=== PATIENT | female | born 1980 | race Hispanic/Latino ===

== ENCOUNTER 2019-06-06 17:59 | Emergency (ER) | payer BC, OTHER ==
[2019-06-06 18:54] LABS: Protime INR 1.02
[2019-06-06 19:07] LABS: Barbiturates NEGATIVE (NEGATIVE); Benzodiazepines NEGATIVE (NEGATIVE); Cocaine NEGATIVE (NEGATIVE); METHAMPHETAM POSITIVE (NEGATIVE); Methadone NEGATIVE (NEGATIVE); Opiates NEGATIVE (NEGATIVE); Phencyclidine NEGATIVE (NEGATIVE); THC Cannibis NEGATIVE (NEGATIVE)
[2019-06-06] MEDS ORDERED: NA CHLORIDE 0.9% 1,000 ML ONE (19:23)
[2019-06-06 19:29] LABS: ALT/SGPT 34 U/L (12-78); AST/SGOT 40 U/L (15-37); Albumin 4.5 g/dL (3.4-5.0); Alkaline Phosphatase 113 U/L (45-117); BUN Blood Urea Nitrogen 9 mg/dL (7-18); Bicarbonate 22 mmol/L (21-32); Bilirubin Direct 0.2 mg/dL (0-0.2); Bilirubin Total 0.4 mg/dL (0.2-1.0); Glucose Level 106 mg/dL (74-106); Potassium 4.1 mmol/L (3.5-5.1); Protein, Total 8.4 g/dL (6.4-8.2); Sodium Level 137 mmol/L (136-145)
[2019-06-06 19:33] LABS: Absolute Lymphocytes (CBC) 1.7 K/uL (0.7-4.9); Basophils % 0.2 % (0-1.3); Hematocrit 37.8 % (36.0-45.0); Lymphocytes % 16.7 % (15.3-44.8); RBC Red Blood Cell Count 4.68 M/uL (3.86-4.86)
[2019-06-06] MEDS ORDERED: ACETAMINOPHEN 500 MG TAB ONE (19:48)
[2019-06-06 20:33] LABS: Urine Blood 2+ (NEG); Urine Glucose NEGATIVE (NEG); Urine Protein NEGATIVE (NEG)
--- NOTE | 2019-06-06 21:18 | EDPHYS ---
Physician Documentation [facility] Name: Maria Del Carmen Marshall Age: 39 yrs Sex: Female : 1980 Arrival Date: 06/06/2019 Time: 18:02 Bed 24 Private MD: Faisal Lott H ED Physician Beto Arvizu HPI: 06/06 18:20 This 39 yrs old Female presents to ER via Wheelchair with complaints of rn Overdose. 18:20 The patient presents to the emergency department with a possible overdose. Associated rn signs and symptoms: Pertinent positives: suicidal ideation. Severity of symptoms: At their worst the symptoms were moderate in the emergency department the symptoms are unchanged. The patient has experienced similar episodes in the past. 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 reports marital problems and arguments lately, has overdosed before, and brought her in for suicidal ideation. Found her in room staring down at barrel of 357 revolver, loaded. Denies other drug use or overdose, no ETOH. . 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 - Family history:: not pertinent. - Social history:: Smoking status: unknown. - Ebola Screening: : No symptoms or risks identified at this time. - Hospitalizations: : No recent hospitalization is reported. ROS: 18:20 Constitutional: Negative for fever, chills, and weight loss, Eyes: Negative for injury, rn pain, redness, and discharge, Neck: Negative for injury, pain, and swelling, Cardiovascular: Negative for chest pain, palpitations, and edema, Respiratory: Negative for shortness of breath, cough, wheezing, and pleuritic chest pain, Abdomen/GI: Negative for abdominal pain, nausea, vomiting, diarrhea, and constipation, MS/Extremity: Negative for injury and deformity, Skin: Negative for injury, rash, and discoloration, Neuro: Negative for headache, weakness, numbness, tingling, and seizure, Psych: + suicidal ideation and depression Exam: 18:20 Constitutional: This is a well developed, well nourished patient who is awake, alert, rn calm, tearful Head/Face: Normocephalic, atraumatic. Eyes: Pupils equal round and reactive to light, extra-ocular motions intact. Lids and lashes normal. Conjunctiva and sclera are non-icteric and not injected. Cornea within normal limits. Periorbital areas with no swelling, redness, or edema. No nystagmus ENT: MMM Cardiovascular: Tachycardic, regular Respiratory: No increased work of breathing, no retractions or nasal flaring. Skin: Warm, dry MS/ Extremity: No cyanosis. Neuro: Awake and alert, GCS 15, oriented to person, place, time, and situation. Vital Signs: 18:18 BP 140 / 107; Pulse 120; Resp 20; Temp 98.7; Pulse Ox 100% on R/A; mg2 19:00 BP 136 / 115; Pulse 92; Resp 21; Pulse Ox 100% on R/A; Pain 0/10; vc 19:30 BP 147 / 97; Pulse 89; Resp 19; Pulse Ox 100% on R/A; vc 21:50 Weight 81.19 kg; Height 5 ft. 2 in. (157.48 cm); hb 21:56 BP 140 / 93; Pulse 85; Resp 18; Temp 98.7(O); Pulse Ox 100% ; hb 22:32 BP 134 / 79; Pulse 87; Resp 18; Temp 98; Pulse Ox 100% on R/A; mg2 21:50 Body Mass Index 32.74 (81.19 kg, 157.48 cm) hb MDM: 18:11 Patient medically screened. rn 20:28 Data reviewed: vital signs, nurses notes. Data interpreted: Pulse oximetry: on room air snw is 100 %. Interpretation: normal. Counseling: I had a detailed discussion with the patient and/or guardian regarding: the historical points, exam findings, and any diagnostic results supporting the discharge/admit diagnosis, the presence of at least one elevated blood pressure reading (>120/80) during this emergency department visit, lab results, radiology results, the need to transfer to another facility, [facility] does not immediately have the required specialist, Pt is willing to be transferred for psychological evaluation. No complaints at this time.. Response to treatment: the patient's symptoms have mildly improved after treatment. 21:00 Physician consultation: Dr Henry was called at 21:00, was contacted at 21:00, snw regarding regarding transfer, to a psychiatric hospital. Dr. Henry kindly accepts pt in transfer, pt family declines as they read poor reviews on the facility. 22:14 Physician consultation: Dr Burch was called at 22:15, was contacted at 22:14, snw regarding regarding transfer, to a psychiatric hospital. Dr. Burch kindly accepts pt in transfer. 06/06 18:20 Order name: Acetaminophen; Complete Time: 19:42 rn 06/06 18:20 Order name: Basic Metabolic Panel; Complete Time: 19:42 rn 06/06 18:20 Order name: CBC with Diff; Complete Time: 19:42 rn 06/06 18:20 Order name: ETOH Level; Complete Time: 19:42 rn 06/06 18:20 Order name: Hepatic Function; Complete Time: 19:42 rn 06/06 18:20 Order name: PT-INR; Complete Time: 18:55 rn 06/06 18:20 Order name: Ptt, Activated; Complete Time: 18:55 rn 06/06 18:20 Order name: Salicylate; Complete Time: 19:42 rn 06/06 18:20 Order name: Urine Drug Screen; Complete Time: 19:06 rn 06/06 18:20 Order name: EKG; Complete Time: 18:21 rn 06/06 18:58 Order name: Urine Dipstick--Ancillary (enter results); Complete Time: 20:35 bd 06/06 18:58 Order name: Urine --Ancillary (enter results); Complete Time: 20:35 bd 06/06 18:20 Order name: Urine Test (obtain specimen); Complete Time: 18:40 rn 06/06 18:20 Order name: EKG - Nurse/Tech; Complete Time: 18:40 rn 06/06 18:20 Order name: IV Saline Lock; Complete Time: 18:40 rn 06/06 18:20 Order name: Labs collected and sent; Complete Time: 18:40 rn 06/06 18:20 Order name: Urine Dipstick-Ancillary (obtain specimen); Complete Time: 18:40 rn 06/06 19:42 Order name: Recheck VS; Complete Time: 20:05 snw Administered Medications: 19:24 Drug: NS 0.9% 1000 ml Route: IV; Rate: 1 bolus; Site: left antecubital; mg2 22:49 Follow up: Response: No adverse reaction; IV Status: Completed infusion; IV Intake: mg2 1000ml 20:04 Drug: Tylenol 500 mg Route: PO; mg2 22:49 Follow up: Response: No adverse reaction; Marked relief of symptoms mg2 Disposition: 06/07 16:43 Co-signature as Attending Physician, Beto Arvizu MD. rn Disposition: 06/06/19 21:18 Transfer ordered to Psych Facility. Diagnosis are Suicidal ideations, Suicide attempt. - Reason for transfer: Higher level of care. - Accepting physician is Dr. Burch. - Condition is Stable. - Problem is new. - Symptoms are unchanged. Signatures: Dispatcher [employer] Nedra Bianchi, RN RN dm5 Sierra Ramos, BARREL COOPER-C BARREL COOPER-Csnw Beto Arvizu MD MD rn Baxter, Heather, RN RN hb Gardose, Michele, RN RN mg2 Corrections: (The following items were deleted from the chart) 06/06 18:26 18:20 Constitutional: This is a well developed, well nourished patient who is awake, rn alert, and in no acute distress. rn 22:13 21:18 06/06/2019 21:18 Transfer ordered to Psych Facility. Diagnosis is Suicidal snw ideations; Suicide attempt. Reason for transfer: Higher level of care. Accepting physician is Dr. Henry. Condition is Stable. Problem is new. Symptoms are unchanged. snw 22:53 22:13 06/06/2019 21:18 Transfer ordered to Psych Facility. Diagnosis is Suicidal mg2 ideations; Suicide attempt. Reason for transfer: Higher level of care. Accepting physician is Dr. Burch. Condition is Stable. Problem is new. Symptoms are unchanged. snw
--- NOTE | 2019-06-06 21:18 | ER ---
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 Transition of care: patient was not received from another setting of care. Onset of symptoms was June 06, 2019. Risk Assessment: Do you want to hurt yourself or someone else? Patient reports desire/thoughts of hurting themselves or someone else. Provider notified. Initial Sepsis Screen: Does the patient meet any 2 criteria? No. Patient's initial sepsis screen is negative. Does the patient have a suspected source of infection? No. Patient's initial sepsis screen is negative. Note Poison control notified by Jayme Manzanares RN at this time. Care prior to arrival: None. 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 - Family history:: not pertinent. - Social history:: Smoking status: unknown. - Ebola Screening: : No symptoms or risks identified at this time. - Hospitalizations: : No recent hospitalization is reported. Screenin:58 Abuse screen: Denies threats or abuse. Nutritional screening: No deficits noted. mg2 Tuberculosis screening: No symptoms or risk factors identified. Fall Risk IV access (20 points). Assessment: 18:13 Reassessment: , poison control said just symptomatic mg2 observation and supportive care till her vital signs comes back to baseline and then Psych consult. 19:05 Reassessment: Patients belongings handed over to , Redd Marshall. vc 19:59 General: Appears in no apparent distress. comfortable, Behavior is calm, cooperative. mg2 Pain: Complains of pain in head. Neuro: Level of Consciousness is awake, alert, obeys commands, Oriented to person, place, time, situation. Neuro: Reports groggy or sleepy. Cardiovascular: Capillary refill < 3 seconds Patient's skin is warm and dry. Respiratory: Airway is patent Respiratory effort is even, unlabored, Respiratory pattern is regular, symmetrical. GI: No signs and/or symptoms were reported involving the gastrointestinal system. : No signs and/or symptoms were reported regarding the genitourinary system. EENT: No signs and/or symptoms were reported regarding the EENT system. Derm: Skin is intact, is healthy with good turgor, Skin is pink, warm \\T\\ dry. normal. Musculoskeletal: Circulation, motion, and sensation intact. Capillary refill < 3 seconds. 21:00 Reassessment: Patient appears in no apparent distress at this time. Patient and/or mg2 family updated on plan of care and expected duration. Pain level reassessed. Patient is alert, oriented x 3, equal unlabored respirations, skin warm/dry/pink. sitter at bedside. 21:28 Reassessment: report given to ERICA Cueva of [facility]. mg2 21:51 Reassessment: patient and family refused to go to [facility] because of bad reviews online. provider informed. report given to ERICA Camejo of [facility]. family informed. 22:50 Reassessment: report given to EMS. patient in good condition. AO x 4. IV DC. mg2 Vital Signs: 18:18 BP 140 / 107; Pulse 120; Resp 20; Temp 98.7; Pulse Ox 100% on R/A; mg2 19:00 BP 136 / 115; Pulse 92; Resp 21; Pulse Ox 100% on R/A; Pain 0/10; vc 19:30 BP 147 / 97; Pulse 89; Resp 19; Pulse Ox 100% on R/A; vc 21:50 Weight 81.19 kg; Height 5 ft. 2 in. (157.48 cm); hb 21:56 BP 140 / 93; Pulse 85; Resp 18; Temp 98.7(O); Pulse Ox 100% ; hb 22:32 BP 134 / 79; Pulse 87; Resp 18; Temp 98; Pulse Ox 100% on R/A; mg2 21:50 Body Mass Index 32.74 (81.19 kg, 157.48 cm) hb ED Course: 18:02 Patient arrived in ED. mr 18:02 Faisal Lott DO is Private Physician. mr 18:07 Triage completed. dm5 18:11 Beto Arvizu MD is Attending Physician. rn 18:12 Jayme Manzanares RN is Primary Nurse. mg2 18:21 Arm band placed on. mg2 18:40 Urine obtained. Urine : negative. dm5 18:49 Sierra Ramos [facility]C [facility] snw 19:15 Inserted saline lock: 22 gauge in left antecubital area, using aseptic technique. vc 19:58 No provider procedures requiring assistance completed. mg2 19:59 Patient has correct armband on for positive identification. Placed in gown. mg2 22:50 IV discontinued, intact, bleeding controlled, No redness/swelling at site. Pressure mg2 dressing applied. Administered Medications: 19:24 Drug: NS 0.9% 1000 ml Route: IV; Rate: 1 bolus; Site: left antecubital; mg2 22:49 Follow up: Response: No adverse reaction; IV Status: Completed infusion; IV Intake: mg2 1000ml 20:04 Drug: Tylenol 500 mg Route: PO; mg2 22:49 Follow up: Response: No adverse reaction; Marked relief of symptoms mg2 Intake: 22:49 IV: 1000ml; Total: 1000ml. mg2 Outcome: 21:18 ER care complete, transfer ordered by . snw 22:51 Transferred by ground EMS to other acute care facility: [facility]. mg2 Transfer form completed. 22:51 Condition: stable 22:51 Instructed on the need for transfer, Demonstrated understanding of instructions. 22:53 Patient left the ED. mg2 Signatures: Nedra Pedersen RN RN 5 Sierra Ramos FNP-C LOG DRIVER-Csnw Ab Geraldine mr Beto Arvizu MD MD rn Baxter, Heather, RN RN hb Gardose Jayme, RN RN mg2 Thu Driver, RN RN vc
--- NOTE | 2019-06-07 14:01 | EKG ---
Test Date: 2019-06-06 Test Time: 18:38:53 Storm Door Maker: MG MEASUREMENT RESULTS: Intervals: Rate: 100 AL: 144 QRSD: 88 QT: 366 QTc: 472 [place]: P: 47 AL: 144 QRS: 23 T: 25 INTERPRETIVE STATEMENTS: Normal sinus rhythm Possible Left atrial enlargement Borderline ECG No previous ECG available for comparison Electronically Signed On 06-07-19 14:00:17 FAMILY MANAGER by Nathan Hodge
[2019-06-07 14:52] VITALS: O2SAT 100
[2019-06-07 14:58] VITALS: BP 134/79; TEMP 98
== END 2019-06-06 22:53 ==
LOC: ER 17:59
DX: T14.91XA Suicide attempt, initial encounter (principal); T42.6X2A Poisoning by other antiepileptic and sedative-hypnotic drugs, intentional self-harm, initial encounter; Y92.9 Unspecified place or not applicable; Y93.9 Activity, unspecified
CPT/HCPCS: 96361; 93005; 85025; 80048; 36415; 80320; 80329 ×2; 81025; 85610; 80076; 80307 ×8; 85730; 81003; 96360; 99285; J7030

== ENCOUNTER 2021-08-08 08:50 | Emergency (ER) | payer BC ==
--- OUTSIDE RECORDS SUMMARY | 2021-08-08 08:52 | XMS REPORT | Continuity of Care Document ---
:1980 Author Organization [facility] t Address [address] [place] [address] Care Team Providers Name Role Phone Kareen Oshea Primary Care Physician [phone] GABRIEL Attending Clinician Unavailable Genna Attending Clinician [phone] OLYA Attending Clinician Unavailable Cari Corbin Attending Clinician [phone] Jordan Nur MD Attending Clinician GABRIEL Admitting Clinician Unavailable OLYA Admitting Clinician Unavailable Payers Payer Name Policy Type Policy Number Effective Date Expiration Date [place] [id number] 2019 00:00:00 Problems Condition Condition Condition Status Onset Resolution Last Treating Co mments Source Name Details Category Date Date Treatment Clinician Date Lung Lung Disease Active 2019-05 [facility] nodule [facility] l Dyspnea Dyspnea Disease Active 2019-05 [facility] 00 l Allergies, Adverse Reactions, Alerts Allergy Allergy Status Severity Reaction(s) Onset Inactive Treating Comm ents Source Name Type Date Date Clinician NO KNOWN Drug Active Univers ALLERGIE Class ity of [facility] Family History Family Member Diagnosis Comments Start Date Stop Date Source Natural mother Arthritis [facility] Natural mother Hypertension [facility] Natural daughter Crohn's disease Met [facility] father Arthritis [facility] father Diabetes [facility] Natural father Heart [facility] Natural father Hypertension [facility] Natural father Stroke [facility] Maternal [facility] Social History Social Habit Start Date Stop Date Quantity Comments Source History SDPA [facility] Std [facility] Drinks History [facility] Binge Hospital History [facility] Comment Hospital Tobacco use and 2020-03-05 2020-03-05 Smokeless tobacco Me [facility] exposure 00:00:00 00:00:00 non-user Hospital Alcohol intake 2020-03-05 2020-03-05 Lifetime [facility] 00:00:00 00:00:00 non-drinker Hospital (finding) History SDPA 2020-03-05 2020-03-05 1 [facility] Frequency 00:00:00 00:00:00 Hospita l Sex Assigned At [birth year] F [facility] 00:00:00 00:00:00 Hospital Smoking Status Start Date Stop Date Source Never smoked tobacco [facility] Medications Ordered Filled Start Stop Current Ordering Indication Dosage Frequency Signature Comments Components Source Medication Medication Date Date Medication? Clinician (SIG) Name Name losartan 2019-05 Yes losartan Metho di (COZAAR) 25 0-[address] [facility] tablet 08:59: tablet Hospit a 49 l hydroCHLORO 2019-05 Yes hydrochlor [facility] thiazide 0-[address] (HYDRODIURI 08:59: 12.5 mg Hos omaira L) 12.5 MG 24 tablet l tablet methocarbam 2019-05 Yes methocarba [facility] oL 0-[address] (ROBAXIN) 08:59: tablet Hospit a 750 MG 24 l tablet traZODone 2019-05 Yes trazodone [facility] (DESYREL) 0-[address] 100 MG 08:59: tablet Hospita tablet 24 l meloxicam 2019-05 Yes meloxicam [facility] (MOBIC) 15 0-[address] mg tablet 08:59: tablet Hospit a 24 l atorvastati 2018-05 Yes atorvastat [facility] n (LIPITOR) 2-[address] 20 mg 00:00: tablet Hospita tablet 00 l Procedures This patient has no known procedures. Plan of Care Planned Activity Planned Date Details Comments Source Future Scheduled 2021-03-19 COVID-[address] [facility] Test 15:55:30 (1) [code = COVID-19 VACCINE (1)] Future Scheduled 2021-03-19 Hepatitis C [facility] 15:55:30 screening (procedure) [code = 902390290] Future Scheduled 2021-03-19 Screening for [facility] Test 15:55:30 malignant neoplasm of cervix (procedure) [code = 096349624] Future Scheduled 2021-03-19 INFLUENZA VACCINE [facility] Test 15:55:30 [code = INFLUENZA VACCINE] Encounters Start End Encounter Admission Attending Care Care Encounter Source Date/Time Date/Time Type Type Clinicians Facility Department ID 2021-08-07 2021-08-07 Outpatient [facility] [id number] [place] 02:13:00 02:13:00 324 [facility] 2021-07-23 2021-07-23 Outpatient [facility] [id number] [place] 05:15:00 05:15:00 309 [facility] 2021-07-17 2021-07-17 Outpatient [facility] [id number] [place] 06:15:00 06:15:00 303 [facility] 2021-07-17 2021-07-17 Outpatient Genna, [facility] [id number] 00:00:00 00:00:00 Sierra [id number] 2021-06-10 Outpatient GENNA_S [facility] [id number] [place] 11:58:00 11:58:00 125 [facility] 2021-06-10 2021-06-10 Outpatient GENNA_S [facility] [id number] [place] 11:58:00 11:58:00 302 [facility] Clin[facility] 2021-05-22 2021-05-22 Outpatient [facility] [id number] [place] 08:42:00 08:42:00 106 [facility] Clin[facility] 2021-05-21 2021-05-21 Outpatient [facility] [id number]- [place] 05:36:00 05:36:00 105 [facility] Clin[facility] 2021-05-21 2021-05-21 Outpatient Genna [facility] [id number] 00:00:00 00:00:00 Sierra [id number] 2021-05-21 2021-05-21 Outpatient Genna [facility] [id number] 00:00:00 00:00:00 Sierra [id number] 2021-05-05 2021-05-05 Outpatient [facility] 61- [place] 11:20:00 11:20:00 220 [facility] 2021-05-05 2021-05-05 Outpatient Genna [facility] [id number] 00:00:00 00:00:00 Sierra [id number] 2021-03-20 2021-03-20 Outpatient [facility] [id number] [place] 03:55:00 03:55:00 104 [facility] 2021-03-20 2021-03-20 [facility] a[facility] [id number] 00:00:00 00:00:00 , [place] [id number] Cari [id number] 2021-03-07 2021-03-07 Outpatient [facility] [id number] [place] 09:53:00 09:53:00 022 [facility] i [facility] Clin[facility] 2021-03-06 2021-03-06 Outpatient [facility] 61- [place] 05:48:00 05:48:00 021 [facility] i [facility] Clinics 2021-03-06 2021-03-06 Outpatient [facility] a16 [id number] 00:00:00 00:00:00 , [place] [id number] Cari [id number] 2020-11-20 2020-11-20 Outpatient [facility] [id number] [place] 05:37:00 05:37:00 707 [facility] 2020-11-20 2020-11-20 Outpatient [facility] ead [id number] 00:00:00 00:00:00 , [place] [id number] Cari [id number] 2020-11-20 2020-11-20 Outpatient [facility] [id number] 00:00:00 00:00:00 , [place] [id number] Cari [id number] 2020-11-14 2020-11-14 Outpatient [facility] [id number] [place] 10:25:00 10:25:00 701 [facility] 2020-11-14 2020-11-14 Outpatient [facility] [id number] 00:00:00 00:00:00 , [place] [id number] Cari [id number] 2020-09-29 2020-09-29 Outpatient R [facility] [id number] 09:00:00 09:00:00 [id number] [facility] 2020-09-26 2020-09-26 Outpatient [facility] [id number] [place] 06:47:00 06:47:00 630 [facility] 2020-07-16 2020-07-16 Outpatient [facility] [id number] [place] 05:34:00 05:34:00 302 [facility] 2020-07-16 2020-07-16 Outpatient [facility] [id number] 00:00:00 00:00:00 , [place] [id number] Cari [id number] 2019-08-31 2019-08-31 [facility] [id number] 00:00:00 00:00:00 Saw Ortega [facility] [id number] [facility].[id number] [facility] [id number] 2019-06-21 2019-06-21 Refjavi Nur [place] [id number] 00:00:00 00:00:00 Saw [place] [id number] [place] [id number] Professio [phone] [address] 2019-06-20 2019-06-20 Thong Nur [facility] [id number] 00:00:00 00:00:00 [place] [id number] [place] [id number] Professio [phone] [address] 2019-06-10 2019-06-10 Thong Nur [facility] [id number] 00:00:00 00:00:00 Saw [place] [id number] [place] [id number] Professio [phone] [address] 2019-02-03 2019-02-03 Refjavi Nur [facility] [id number] 00:00:00 00:00:00 Saw [place] [id number] [place] [id number] Professio [id number] [address] 2019-01-03 2019-01-03 Thong Nur [facility] [id number] 00:00:00 00:00:00 [place] [id number] [place] [id number] Professio [id number] [address] 2018-12-10 2018-12-10 Thong Nur [facility] [id number] 00:00:00 00:00:00 [place] [id number] [place] [id number] Professio [phone] [address] Results This patient has no known results.
[2021-08-08] MEDS ORDERED: MAGNES/ALUMIN/SIMET 30ML UCUP ONE (09:20)
[2021-08-08] MEDS ORDERED: LIDOCAINE VISCOUS 2% SOLN 15 ML UDC ONE (09:20)
[2021-08-08] MEDS ORDERED: PANTOPRAZOLE 40 MG INJ ONE (09:20)
[2021-08-08 09:37] LABS: Absolute Lymphocytes (CBC) 1.6 K/uL (0.7-4.9); Hematocrit 35.9 % (36.0-45.0); Lymphocytes % 20.5 % (15.3-44.8); MPV 8.3 fL (7.6-11.3); RBC Red Blood Cell Count 4.36 M/uL (3.86-4.86)
[2021-08-08 09:42] LABS: Urine Blood 3+ (Negative); Urine Glucose Negative (Negative); Urine Protein Negative (Negative)
[2021-08-08 10:01] LABS: ALT/SGPT 28 U/L (12-78); AST/SGOT 10 U/L (15-37); Albumin 3.3 g/dL (3.4-5.0); Alkaline Phosphatase 90 U/L (45-117); BUN Blood Urea Nitrogen 13 mg/dL (7-18); Bicarbonate 29 mmol/L (21-32); Bilirubin Total 0.4 mg/dL (0.2-1.0); Glucose Level 141 mg/dL (74-106); Lipase 162 U/L (73-393); Potassium 3.3 mmol/L (3.5-5.1); Protein, Total 6.8 g/dL (6.4-8.2); Sodium Level 138 mmol/L (136-145)
[2021-08-08 10:07] LABS: Troponin High Sensitivity < 3.00 pg/mL (<58.9)
[2021-08-08] MEDS ORDERED: DIAZEPAM 5 MG TABLET ONE (10:39)
--- NOTE | 2021-08-08 10:41 | RAD REPORT ---
EXAM DESCRIPTION: Kacy Single View08/08/2021 10:34 am CLINICAL HISTORY: Chest pain COMPARISON: none FINDINGS: The lungs appear clear of acute infiltrate. The heart is normal size IMPRESSION: No acute abnormalities displayed
--- NOTE | 2021-08-08 11:09 | ER ---
[facility] Name: Maria Del Carmen Marshall Age: 41 yrs Sex: Female : 1980 Arrival Date: 08/08/2021 Time: 08:50 Bed 13 Private MD: Diagnosis: Chest pain, unspecified;Upper abdominal pain, unspecified Presentation: 08/08 09:06 Chief complaint: Patient states: Midsternal chest pain for approx 2 weeks, has been ph seen at another ED and had a cardiac workup and gallbladder studies which were negative, has also followed up w/ accounting consultant and had a normal stress test. States that pain is worse to day and she fells SOB and dizzy, also reports an episode of vomiting last night and dark stools. Coronavirus screen: Vaccine status: Patient reports receiving the 2nd dose of the covid vaccine. Ebola Screen: No symptoms or risks identified at this time. Initial Sepsis Screen: Does the patient meet any 2 criteria? No. Patient's initial sepsis screen is negative. Does the patient have a suspected source of infection? No. Patient's initial sepsis screen is negative. Risk Assessment: Do you want to hurt yourself or someone else? Patient reports no desire to harm self or others. Onset of symptoms was August 08, 2021. 09:06 Method Of Arrival: Ambulatory ph 09:06 Acuity: MARYA 3 ph Triage Assessment: 09:15 General: Appears in no apparent distress. uncomfortable, Behavior is cooperative, bp appropriate for age, anxious. Pain: Complains of pain in mid-sternal area. EENT: No deficits noted. Neuro: No deficits noted. Cardiovascular: Reports chest pain, Rhythm is sinus rhythm. Respiratory: Breath sounds are clear bilaterally. GI: No signs and/or symptoms were reported involving the gastrointestinal system. Abdomen is non-distended. : No signs and/or symptoms were reported regarding the genitourinary system. Derm: No deficits noted. Musculoskeletal: No deficits noted. Historical: - Allergies: 09:09 Morphine; ph - Home Meds: :09 Aspirin Oral [Active]; Hydrochlorothiazide Oral [Active]; atorvastatin oral [Active]; ph diclofenac oral [Active]; Protonix Oral [Active]; - PMHx: 09:09 ADD/ADHD; Anxiety; Depression; stroke; ph - PSHx: 09:09 None; ph - Immunization history:: Adult Immunizations up to date. - Social history:: Smoking status: Patient denies any tobacco usage or history of. - Family history:: not pertinent. - Hospitalizations: : No recent hospitalization is reported. Screenin:15 Abuse screen: Denies threats or abuse. Denies injuries from another. Nutritional bp screening: No deficits noted. Tuberculosis screening: No symptoms or risk factors identified. Fall Risk None identified. Assessment: 09:15 General: SEE TRIAGE NOTE. bp 09:56 Reassessment: No changes from previously documented assessment. Patient and/or family bp updated on plan of care and expected duration. Pain level reassessed. ALL CURRENT ORDERS COMPLETE. 10:50 Reassessment: No changes from previously documented assessment. Patient and/or family bp updated on plan of care and expected duration. Pain level reassessed. MD AT B/S. 11:35 Reassessment: PT D/C HOME AMBULATORY, DX WITH NONSPECIFIC CHEST PAIN. bp Vital Signs: 09:06 BP 118 / 62; Pulse 69; Resp 20; Temp 98.1(TE); Weight 85.73 kg; Height 5 ft. 2 in. bp (157.48 cm); Pain 9/10; 09:55 BP 132 / 73; Pulse 75; Resp 16; Pulse Ox 100% ; bp 10:49 BP 114 / 70; Pulse 79; Resp 16; Pulse Ox 100% ; bp 11:35 BP 132 / 73; Pulse 71; Resp 16; Pulse Ox 100% ; bp 09:06 Body Mass Index 34.57 (85.73 kg, 157.48 cm) bp ED Course: 08:50 Patient arrived in ED. am2 08:51 Beto Arvizu MD is Attending Physician. rn 08:53 Jose Zendejas, ERICA is Primary Nurse. bp 09:09 Triage completed. ph 09:11 Arm band placed on Patient placed in an exam room, on a stretcher. ph 09:15 Patient has correct armband on for positive identification. Bed in low position. Call bp light in reach. Side rails up X2. engine monitor on. Pulse ox on. NIBP on. 09:15 EKG done, by ED staff. tp1 09:15 Patient maintains SpO2 saturation greater than 95% on room air. bp 09:28 Inserted saline lock: 20 gauge in left antecubital area, using aseptic technique. Blood tp1 collected. 10:36 XRAY Chest (1 view) In Process Unspecified. EDMS 11:07 EKG done, by ED staff. tp1 11:08 Fahad Espino MD is Referral Physician. rn 11:35 No provider procedures requiring assistance completed. IV discontinued, intact, bp bleeding controlled, No redness/swelling at site. Pressure dressing applied. Administered Medications: 09:15 Drug: GI Cocktail without - (Maalox Suspension 30 ml, Lidocaine Liquid 2 % 15 bp ml) Route: PO; 09:56 Follow up: Response: No adverse reaction bp 09:25 Drug: ProTONIX (pantoprazole) 40 mg Route: IVP; Site: left antecubital; bp 09:56 Follow up: Response: No adverse reaction bp 10:35 Drug: Valium (diazepam) 2.5 mg {Note: PER MD.} Route: PO; bp 10:48 Follow up: Response: No adverse reaction bp Outcome: 11:09 Discharge ordered by MD. rn 11:35 Discharged to home ambulatory. bp 11:35 Condition: stable 11:35 Discharge instructions given to patient, Instructed on discharge instructions, follow up and referral plans. medication usage, Demonstrated understanding of instructions, follow-up care, medications, Prescriptions given X 1. 11:37 Patient left the ED. bp Signatures: Dispatcher [employer] EDMS Beto Arvizu MD MD rn Hall, Patricia, RN RN ph Faviola Shaikh Brian, RN RN Tanya Myers tp1 Corrections: (The following items were deleted from the chart) 09:33 09:06 Resp 20bpm; Temp 98.1F Temporal; 85.73 kg; Height 5 ft. 2 in.; BMI: 34.5; Pain bp 9/10; ph
--- NOTE | 2021-08-08 11:09 | EDPHYS ---
Physician Documentation [facility] Name: Maria Del Carmen Marshall Age: 41 yrs Sex: Female : 1980 Arrival Date: 08/08/2021 Time: 08:50 Bed 13 Private MD: ED Physician Beto Arvizu HPI: 08/08 09:08 This 41 yrs old Female presents to ER via Unassigned with complaints of Chest rn Pain. 09:08 The patient or guardian reports chest pain that is located primarily in the substernal rn area. Onset: 2 week(s) ago. The pain does not radiate. Associated signs and symptoms: Pertinent positives: abdominal pain, lightheadedness, Pertinent negatives: cough, diaphoresis, palpitations, syncope. The chest pain is described as aching. Duration: The patient or guardian reports multiple episodes, that wax and wane. Modifying factors: The symptoms are alleviated by nothing. the symptoms are aggravated by nothing. Severity of pain: At its worst the pain was moderate in the emergency department the pain has improved. The patient has not experienced similar symptoms in the past. The patient has been recently seen by a physician:. Pt reports chest pain for 2 weeks now, feels achy/dull, substernal, no radiation, reports sometimes food "feels stuck" when swallowing, also having mild upper abd pain with 1 episode of vomiting. Has had 2 ER visits without clear etiology, put on protonix, also saw cardiology with neg stress test this past week and told her heart looked ok. No trauma. No fever. Non-smoker. No 2nd hand smoke. . Historical: - Allergies: 09:09 Morphine; ph - Home Meds: 09:09 Aspirin Oral [Active]; Hydrochlorothiazide Oral [Active]; atorvastatin oral [Active]; ph diclofenac oral [Active]; Protonix Oral [Active]; - PMHx: 09:09 ADD/ADHD; Anxiety; Depression; stroke; ph - PSHx: 09:09 None; ph - Immunization history:: Adult Immunizations up to date. - Social history:: Smoking status: Patient denies any tobacco usage or history of. - Family history:: not pertinent. - Hospitalizations: : No recent hospitalization is reported. ROS: 09:08 Constitutional: Negative for fever, chills, and weight loss, Eyes: Negative for injury, rn pain, redness, and discharge, Neck: Negative for injury, pain, and swelling, Cardiovascular: Negative for palpitations, and edema, Respiratory: Negative for cough, wheezing, and pleuritic chest pain, Abdomen/GI: + upper abd pain : Negative for injury, bleeding, discharge, and swelling, MS/Extremity: Negative for injury and deformity, Skin: Negative for injury, rash, and discoloration, Neuro: Negative for headache, weakness, numbness, tingling, and seizure. 09:08 All other systems are negative. rn Exam: 09:08 Constitutional: This is a well developed, well nourished patient who is awake, alert. 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 + tearful. Head/Face: Normocephalic, atraumatic. Eyes: Periorbital areas with no swelling, redness, or edema. Cardiovascular: Regular rate and rhythm. No pulse deficits. Respiratory: Speaking full sentences, unlabored. No increased work of breathing, no retractions or nasal flaring. Abdomen/GI: soft, non-tender, no rebound, neg diaz Skin: Warm, dry MS/ Extremity: Pulses equal, no cyanosis. Neuro: Awake and alert, GCS 15 09:13 ECG was reviewed by the Attending Physician. rn Vital Signs: 09:06 BP 118 / 62; Pulse 69; Resp 20; Temp 98.1(TE); Weight 85.73 kg; Height 5 ft. 2 in. bp (157.48 cm); Pain 9/10; 09:55 BP 132 / 73; Pulse 75; Resp 16; Pulse Ox 100% ; bp 10:49 BP 114 / 70; Pulse 79; Resp 16; Pulse Ox 100% ; bp 11:35 BP 132 / 73; Pulse 71; Resp 16; Pulse Ox 100% ; bp 09:06 Body Mass Index 34.57 (85.73 kg, 157.48 cm) bp MDM: 08:51 Patient medically screened. rn 09:12 ED course: Pt states also had ultrasound of gallbladder at [facility], and told no rn infection or gallstones. . 10:41 ED course: Called to room when patient reported sensation of chest tightness and sob, rn is breathing regular, no respiratory difficulty or distress, 100% O2, vitals normal, no tachycardia, happened shortly after GI cocktail, might be anxiety which she has a hx of, will try 2mg valium PO and reeval. ECG normal, trop normal, D-dimer normal. Ordered cxr as well even though she states just had negative CXR this week as well. . 11:07 Differential diagnosis: acute pericarditis, anxiety, chest wall pain, Cholelithiasis rn costochondritis, esophagitis, gastritis, gastroesophageal reflux disease (GERD), pancreatitis, pericarditis, pleurisy, pneumothorax, pulmonary embolus. Data reviewed: vital signs, nurses notes, lab test result(s), EKG, radiologic studies, plain films, and as a result, I will discharge patient. Counseling: I had a detailed discussion with the patient and/or guardian regarding: the historical points, exam findings, and any diagnostic results supporting the discharge/admit diagnosis, lab results, radiology results, the need for outpatient follow up, to return to the emergency department if symptoms worsen or persist or if there are any questions or concerns that arise at home. Response to treatment: the patient's symptoms have mildly improved after treatment, and as a result, I will discharge patient. ED course: Pt improved after valium. Most likely GI related as neg stress test and cardiology eval within this past week, advise continuation of protonix, diet modification and GI f/u for EGD. Return precautions given. Patient requests refill of her protonix and pantoprazole. . 08/08 09:06 Order name: CBC with Diff; Complete Time: 09:48 rn 08/08 09:06 Order name: CMP; Complete Time: 10:14 rn 08/08 09:06 Order name: Lipase; Complete Time: 10:14 rn 08/08 09:06 Order name: Troponin High Sensitivity; Complete Time: 10:14 rn 08/08 09:07 Order name: D-Dimer; Complete Time: 09:48 rn 08/08 09:42 Order name: Urine Dipstick-Ancillary; Complete Time: 09:48 EDMS 08/08 09:06 Order name: IV Saline Lock; Complete Time: 09: rn 08/08 09:06 Order name: Labs collected and sent; Complete Time: 09:29 rn 08/08 09:06 Order name: EKG; Complete Time: 09:07 rn 08/08 09:52 Order name: Urine --Ancillary (enter results); Complete Time: 10:20 eb 08/08 10:15 Order name: XRAY Chest (1 view); Complete Time: 10:43 rn 08/08 09:06 Order name: EKG - Nurse/Tech; Complete Time: 09:15 rn 08/08 09:06 Order name: Cardiac monitoring; Complete Time: 09:29 rn 08/08 09:07 Order name: Urine Dipstick-Ancillary (obtain specimen); Complete Time: 09:56 rn 08/08 09:07 Order name: Urine Test (obtain specimen); Complete Time: 09:56 rn EC:13 Rate is 72 beats/min. Rhythm is regular. QRS [place] is Normal. [place] interval is normal. QRS rn interval is normal. QT interval is normal. No Q waves. T waves are Normal. No ST changes noted. Clinical impression: Normal ECG. Interpreted by me. Reviewed by me. Administered Medications: 09:15 Drug: GI Cocktail without - (Maalox Suspension 30 ml, Lidocaine Liquid 2 % 15 bp ml) Route: PO; 09:56 Follow up: Response: No adverse reaction bp 09:25 Drug: ProTONIX (pantoprazole) 40 mg Route: IVP; Site: left antecubital; bp 09:56 Follow up: Response: No adverse reaction bp 10:35 Drug: Valium (diazepam) 2.5 mg {Note: PER MD.} Route: PO; bp 10:48 Follow up: Response: No adverse reaction bp Disposition Summary: 08/08/21 11:09 Discharge Ordered Location: Home rn Problem: an ongoing problem rn Symptoms: have improved rn Condition: Stable rn Diagnosis - Chest pain, unspecified rn - Upper abdominal pain, unspecified rn Followup: rn - With: Fahad Espino MD - When: As needed - Reason: Recheck today's complaints, Re-evaluation by your physician Discharge Instructions: - Discharge Summary Sheet rn - Nonspecific Chest Pain, Adult rn - Food Choices for Gastroesophageal Reflux Disease, Adult rn - Esophagitis rn - Pain Without a Known Cause rn Forms: - Medication Reconciliation Form rn - Thank You Letter rn - 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
[2021-08-08 11:42] VITALS: TEMP 98.1
[2021-08-08 11:43] VITALS: O2SAT 100
[2021-08-08 11:45] VITALS: BP 132/73
--- NOTE | 2021-08-11 09:31 | EKG ---
Test Date: 2021-08-08 Test Time: 11:05:13 Supervisor [employer] Hand: WILLY MEASUREMENT RESULTS: Intervals: Rate: 70 OR: 148 QRSD: 88 QT: 410 QTc: 442 [place]: P: 43 OR: 148 QRS: 34 T: 19 INTERPRETIVE STATEMENTS: Normal sinus rhythm Anterior infarct, age undetermined Abnormal ECG Compared to ECG 06/06/2019 18:38:53 Myocardial infarct finding now present Electronically Signed On 08-11-21 09:26:12 CDT by Justin Hebert
--- NOTE | 2021-08-12 12:40 | EKG ---
Test Date: 2021-08-08 Test Time: 09:06:35 Neurophysiological Technician: WILLY MEASUREMENT RESULTS: Intervals: Rate: 72 DC: 142 QRSD: 94 QT: 420 QTc: 459 [place]: P: 37 DC: 142 QRS: 44 T: 51 INTERPRETIVE STATEMENTS: Normal sinus rhythm Normal ECG Compared to ECG 06/06/2019 18:38:53 No significant changes Electronically Signed On 08-12-21 12:33:53 CDT by Justin Hebert
== END 2021-08-08 11:37 | disposition home or self-care (01) ==
LOC: ER 08:50
DX: R07.9 Chest pain, unspecified (principal); R10.10 Upper abdominal pain, unspecified; F41.8 Other specified anxiety disorders; Z86.73 Personal history of transient ischemic attack (TIA), and cerebral infarction without residual deficits; Z88.5 Allergy status to narcotic agent
CPT/HCPCS: 93005 ×2; 85025; 36415; 81025; 85379; 81003; 84484; 83690; 80053; 71045; 96374; 99285; C9113